=== PATIENT | female | born 1955 | race Caucasian/White ===

== ENCOUNTER → 2019-07-08 | Outpatient (CLI) | payer BC ==
[~2019-07-08] MED LIST: ALBIPROI INH; ASCO500 PO; AZIT250 PO; B Complex-Foli1 EACH PO; CEFD300 PO; Mucinex600 MG PO; Norco 5-325 Ta1 EACH PO; OMEPRAZOLE20 MG PO; PROGESTERONE; Prednisone20 MG PO; THERA1 EACH PO; Zofran4 MG PO
== END | disposition home or self-care (01) ==
LOC: LAB SHORT 16:10 → LAB 16:10
DX: K29.80 Duodenitis without bleeding (principal)
CPT/HCPCS: 87338

== ENCOUNTER 2019-07-09 13:22 | Emergency (ER) | payer BC ==
[~2019-07-09] VITALS: Ht 177.8 cm; Wt 59.0 kg
[~2019-07-09 13:22] MED LIST changes: -ASCO500 PO; -B Complex-Foli1 EACH PO; -CEFD300 PO; -Norco 5-325 Ta1 EACH PO; -OMEPRAZOLE20 MG PO; -THERA1 EACH PO
[2019-07-09 14:11] LABS: BASOPHILS ABSOLUTE AUTO 0.03 K/mm3 (0.00-0.23); BASOPHILS PERCENT AUTO 0 % (0-2); EOSINOPHILS ABSOLUTE AUTO 0.12 K/mm3 (0.00-0.68); EOSINOPHILS PERCENT AUTO 2 % (0-6); Hematocrit 42.2 % (33.0-51.0); Hemoglobin 14.2 g/dL (11.5-16.0); IMMATURE GRAN ABSOLUTE AUTO 0.01 K/mm3 (0.00-0.10); IMMATURE GRAN PERCENT AUTO 0 % (0-1); LYMPHOCYTES PERCENT AUTO 24 % (21-46); MONOCYTES ABSOLUTE AUTO 0.53 K/mm3 (0.16-1.47); MONOCYTES PERCENT AUTO 6 % (4-13); Mean Corpuscular HGB 29.3 pg (26.0-34.0); Mean Corpuscular HGB Conc 33.6 g/dL (31.5-36.5); Mean Corpuscular Volume 87 fL (80-100); Mean Platelet Volume 9.6 fL (9.1-12.4); NEUTROPHILS ABSOLUTE AUTO 5.56 K/mm3 (1.96-9.15); NEUTROPHILS PERCENT AUTO 67 % (41-73); Platelet Count 324 K/mm3 (150-400); RDW Coefficient Variation 12.6 % (11.7-14.2); RDW Standard Deviation 39.4 fL (35.1-46.3); Red Blood Cell Count 4.85 M/mm3 (3.80-5.20); White Blood Cell Count 8.25 K/mm3 (4.00-11.30)
[2019-07-09 15:01] LABS: Bilirubin, Total 1.1 mg/dL (0.1-1.0); Bun/Creatinine Ratio 10.6 (12.0-20.0); Calcium, Blood 9.4 mg/dL (8.5-10.1); Creatinine, Blood 1.04 mg/dL (0.40-1.00); Potassium, Blood 4.1 mmol/L (3.5-5.5)
[2019-07-09] MEDS ORDERED: CEFD300 PO (15:47)
[2019-07-09] MEDS ORDERED: OMEPRAZOLE20 MG PO (15:48)
[2019-07-09] MEDS ORDERED: THERA1 EACH PO (15:49)
[2019-07-09] MEDS ORDERED: B Complex-Foli1 EACH PO (15:49)
[2019-07-09] MEDS ORDERED: ASCO500 PO (15:49)
[2019-07-09 16:34] LABS: Source, Urine Clean Catch
[2019-07-09 16:37] LABS: Bilirubin, Urine Neg (Neg); Blood, Urine 1+ (Neg); Glucose Qualitative, Urine Neg (Neg); Ketones, Urine Neg (Neg); Leukocyte Esterase, Urine Neg (Neg); Nitrite, Urine Neg (Neg); Protein, Urine Neg (Neg); Urobilinogen, Urine NORM (Normal); pH, Urine 6.5 (5.0-8.0)
[2019-07-09 16:49] LABS: Appearance, Urine Clear (Clear); Color, Urine Yellow (P-Yellow)
[2019-07-09 16:50] LABS: Bacteria Few /hpf; Red Blood Cells, Urine 0-2 /hpf (0-2); Squamous Epithelial Cells Rare /hpf (Few); White Blood Cells, Urine 0-2 /hpf (0-5)
[2019-07-09] MEDS ORDERED: Norco 5-325 Ta1 EACH PO (17:03)
== END 2019-07-09 17:10 | disposition home or self-care (01) ==
LOC: ER 13:22
PROVIDERS: Physician Assistant
DX: R10.9 Unspecified abdominal pain (principal)
CPT/HCPCS: 36415; 80053; 81001; 85025; 96374; 99284-25; J1885

== ENCOUNTER → 2019-11-04 | Outpatient (CLI) | payer BC ==
[~2019-11-04] MED LIST changes: +ASCO500 PO; +B Complex-Foli1 EACH PO; +CEFD300 PO; +Norco 5-325 Ta1 EACH PO; +OMEPRAZOLE20 MG PO; +THERA1 EACH PO
== END | disposition home or self-care (01) ==
LOC: OLS 14:07 → LAB SHORT 14:07
DX: R91.1 Solitary pulmonary nodule (principal)
CPT/HCPCS: 87070; 87205

== ENCOUNTER → 2019-11-08 | Outpatient (CLI) | payer BC | END | disposition home or self-care (01) | LOC: OLS 20:20 → LAB SHORT 20:20 | DX: R91.1 Solitary pulmonary nodule (principal) | CPT/HCPCS: 87015; 87116; 87206 ==

== ENCOUNTER → 2019-11-08 | Outpatient (CLI) | payer BC | END | disposition home or self-care (01) | LOC: OLS 15:11 → LAB SHORT 15:11 | DX: R91.1 Solitary pulmonary nodule (principal) | CPT/HCPCS: 87070; 87205 ==

== ENCOUNTER → 2019-11-09 | Outpatient (CLI) | payer BC | LOC: OLS 13:44 → LAB SHORT 13:44 | DX: R91.1 Solitary pulmonary nodule (principal) | CPT/HCPCS: 87015; 87116; 87206 ==

== ENCOUNTER → 2023-01-04 | Outpatient (CLI) | payer MEDICARE, BC | LOC: PLD 06:37 → LAB SHORT 06:37 | DX: A31.0 Pulmonary mycobacterial infection (principal); J47.9 Bronchiectasis, uncomplicated | CPT/HCPCS: 87015; 87116; 87206 ==

== ENCOUNTER → 2023-01-05 | Outpatient (CLI) | payer MEDICARE, BC | LOC: LAB SHORT 06:35 → PLD 06:35 | DX: A31.0 Pulmonary mycobacterial infection (principal); J47.9 Bronchiectasis, uncomplicated | CPT/HCPCS: 87015; 87116; 87206 ==

== ENCOUNTER → 2023-01-06 | Outpatient (CLI) | payer MEDICARE, BC | END | disposition home or self-care (01) | LOC: LAB SHORT 08:45 → LAB 08:45 → LAB FUT 01-04 17:35 → EDSTATUS 01-04 17:35 | DX: A31.0 Pulmonary mycobacterial infection (principal); J47.9 Bronchiectasis, uncomplicated | CPT/HCPCS: 87070; 87205 ==

== ENCOUNTER 2023-02-10 09:18 | Day surgery (SDC) | payer MEDICARE, BC ==
[~2023-02-10] VITALS: Ht 177.8 cm; Wt 60.4 kg
[2023-02-10 11:15] VITALS: BP 92/62
== END 2023-02-10 11:00 | disposition home or self-care (01) ==
LOC: ORSCSDS 09:18
PROVIDERS: Internal Medicine Gastroenterology
PROC: 0DJD8ZZ Inspection of Lower Intestinal Tract, Via Natural or Artificial Opening Endoscopic (ICD-10-PCS; principal; 2023-02-10 10:30)
DX: R19.4 Change in bowel habit (principal); K57.30 Diverticulosis of large intestine without perforation or abscess without bleeding; R10.31 Right lower quadrant pain; Z83.71 Family history of colonic polyps; Z79.899 Other long term (current) drug therapy
CPT/HCPCS: J2704; J7120

== ENCOUNTER 2023-10-31 13:30 | Emergency (ER) | payer MEDICARE, BC ==
[~2023-10-31] VITALS: Ht 162.6 cm; Wt 54.4 kg
[2023-10-31 14:38] LABS: BASOPHILS ABSOLUTE AUTO 0.03 K/mm3 (0.00-0.23); BASOPHILS PERCENT AUTO 1 % (0-2); EOSINOPHILS ABSOLUTE AUTO 0.06 K/mm3 (0.00-0.68); EOSINOPHILS PERCENT AUTO 1 % (0-6); Hematocrit 37.3 % (33.0-51.0); Hemoglobin 12.9 g/dL (11.5-16.0); IMMATURE GRAN ABSOLUTE AUTO 0.01 K/mm3 (0.00-0.10); IMMATURE GRAN PERCENT AUTO 0 % (0-1); LYMPHOCYTES ABSOLUTE AUTO 1.85 K/mm3 (0.84-5.20); LYMPHOCYTES PERCENT AUTO 29 % (21-46); MONOCYTES ABSOLUTE AUTO 0.32 K/mm3 (0.16-1.47); MONOCYTES PERCENT AUTO 5 % (4-13); Mean Corpuscular HGB 29.7 pg (26.0-34.0); Mean Corpuscular HGB Conc 34.6 g/dL (31.5-36.5); Mean Corpuscular Volume 86 fL (80-100); Mean Platelet Volume 11.4 fL (9.1-12.4); NEUTROPHILS ABSOLUTE AUTO 4.05 K/mm3 (1.96-9.15); NEUTROPHILS PERCENT AUTO 64 % (41-73); Platelet Count 199 K/mm3 (150-400); RDW Standard Deviation 37.9 fL (35.1-46.3); Red Blood Cell Count 4.34 M/mm3 (3.80-5.20); White Blood Cell Count 6.32 K/mm3 (4.00-11.30)
[2023-10-31 14:52] LABS: Bun/Creatinine Ratio 17.2 (12.0-20.0); Calcium, Blood 8.9 mg/dL (8.5-10.1); Creatinine, Blood 1.16 mg/dL (0.40-1.00); Magnesium, Blood 2.2 mg/dL (1.6-2.4); Potassium, Blood 5.2 mmol/L (3.5-5.5)
[2023-10-31 16:30] VITALS: BP 123/82
== END 2023-10-31 16:46 | disposition home or self-care (01) ==
LOC: ER 13:30
PROVIDERS: Student in an Organized Health Care Education/Training Program
DX: R55 Syncope and collapse (principal); S06.9X9A Unspecified intracranial injury with loss of consciousness of unspecified duration, initial encounter; I49.3 Ventricular premature depolarization; I47.10 Supraventricular tachycardia, unspecified; W18.30XA Fall on same level, unspecified, initial encounter
CPT/HCPCS: 71045; 80048; 83735; 83880; 85025; 93005; 93010; 93246; 99285-25

== ENCOUNTER → 2024-01-01 | Outpatient (CLI) | payer MEDICARE, BC | END | disposition home or self-care (01) | LOC: LAB SHORT 17:11 → LAB 17:11 | DX: R05.1 Acute cough (principal); R05.8 Other specified cough | CPT/HCPCS: 87070; 87205 ==

== ENCOUNTER → 2024-05-10 | Outpatient (CLI) | payer MEDICARE, BC | END | disposition home or self-care (01) | LOC: LAB 19:18 → LAB SHORT 19:18 | DX: A31.0 Pulmonary mycobacterial infection (principal); J47.1 Bronchiectasis with (acute) exacerbation | CPT/HCPCS: 87070; 87205 ==

== ENCOUNTER → 2025-07-21 | Outpatient (CLI) | payer MEDICARE, BC | LOC: LAB SHORT 08:49 → LAB 08:49 | DX: R05.1 Acute cough (principal); R05.8 Other specified cough | CPT/HCPCS: 87070; 87205 ==